=== PATIENT | female | born 1970 | race Caucasian/White ===

== ENCOUNTER 2021-02-28 10:36 | Emergency (ER) | payer OTHER ==
[~2021-02-28] VITALS: Ht 165.1 cm; Wt 83.5 kg
[2021-02-28] MEDS ORDERED: [UNRECOGNIZED DRUG - OTHER] (11:11)
== END 2021-02-28 13:48 | disposition home or self-care (01) ==
LOC: ER 10:36
DX: S16.1XXA Strain of muscle, fascia and tendon at neck level, initial encounter (principal); S40.011A Contusion of right shoulder, initial encounter; S80.01XA Contusion of right knee, initial encounter; G44.309 Post-traumatic headache, unspecified, not intractable; M54.2 Cervicalgia; M25.511 Pain in right shoulder; M25.561 Pain in right knee; M19.90 Unspecified osteoarthritis, unspecified site; Z79.899 Other long term (current) drug therapy; V43.62XA Car passenger injured in collision with other type car in traffic accident, initial encounter
CPT/HCPCS: 70450; 72125; 73030; 73562-RT; 99284-25; A9270; J1885; J2765; J7030